=== PATIENT | male | born 1975 | race Caucasian/White ===

== ENCOUNTER 2022-11-12 01:05 | Day surgery (SDC) | payer OTHER, SELFPAY ==
[2022-11-02 13:13] VITALS: BMI 33.3
[2022-11-12 11:55] VITALS: BP 118/86; PULSE 111; RESP 20; TEMP 36.1; O2SAT 99
[2022-11-12] MEDS: LACTATED RINGERS 1,000 ML 150 ML IV CONT (12:06)
[2022-11-12 12:07] LABS: Glucose Point of Care 126 mg/dl (65-105)
--- NOTE | 2022-11-12 12:11 | PM.HPGS ---
History of Present Illness History of Present Illness Consent: Risks, benefits, and alternatives have been discussed and questions answered. Patient agrees to proceed with procedure. Chief complaint: change in bowel habits Narrative: William Domínguez is a 47 year old male here for first colonoscopy but since July with alternating constipation and diarrhea Review of Systems Constitutional: Constitutional: Denies headache(s) and Denies weakness Eyes: Eyes: Denies blurry vision ENT: Reports Normal hearing present, Denies headache(s) and Denies neck pain Cardiovascular: Cardiovascular: Denies chest pain and Denies dyspnea Respiratory: Respiratory: Denies dyspnea Gastrointestinal: Gastrointestinal: Reports no additional gastrointestinal complaints Genitourinary: Genitourinary: Denies dysuria Musculoskeletal: Musculoskeletal: Denies neck pain Integumentary/Breasts: Skin/Breast: Denies dry skin Neurologic: Reports Normal hearing present, Denies headache(s) and Denies weakness Psychiatric: Psychiatric: Denies anxiety Endocrine: Endocrine: Denies change in body appearance Hematologic/Lymphatic: Hematologic/Lymphatic: Denies easy bleeding Allergic/Immunologic: Allergic/Immunologic: Denies urticaria PMFSH Past Medical History Medical History (Updated 11/12/22 @ 12:12 by Erich Frankel MD) Alternating constipation and diarrhea Colon cancer screening Family History Family History (Updated 10/10/15 @ 23:19 by DOCTOR UNKNOWN) Mother Hypertension Family history of diabetes mellitus in first degree relative Social History Social History Smoking status: Never smoker Alcohol intake: current Drinks per week: 12 Alcohol use details: beer Substance use type: does not use Living arrangements: with family Spiritual care concerns: No Meds Home Medications and Allergies Home Medications Medication Instructions Recorded Confirmed Type dulaglutide 0.75 mg/0.5 mL 0.75 mg subcut WEEKLY 11/02/22 11/02/22 History subcutaneous pen injector (Trulicity) empagliflozin 12.5 mg-metformin 1 tablet PO DAILY 11/02/22 11/02/22 History 1,000 mg tablet (Synjardy) testosterone 1 pump topical DAILY 11/02/22 11/02/22 History Allergies Allergy/AdvReac Type Severity Reaction Status Date / Time No Known Allergies Allergy Verified 11/12/22 11:54 Vital Signs Vital Signs - 24 hr 11/12/22 11:55 Temperature 97 F L Pulse Rate 111 H Respiratory Rate 20 Blood Pressure 118/86 Pulse Oximetry 99 Oxygen Delivery Room Air Exam Const: General: comfortable and no acute distress HENMT: Face/Nose/Sinus: Normal nares present Eyes: General: appearance normal, both eyes and all related structures Neck: Neck: no JVD Resp: Auscultation: clear to auscultation bilaterally Cardio: Rate: regular rate Rhythm: regular rhythm GI: Inspection: non-distended GI Palp: Yes Soft to palpation Skin: General skin exam: normal color Neuro: General: gait normal Speech: normal speech Extrem: General: normal to inspection Psych: Mental Status: mental status grossly normal Assessment and Plan Assessment and plan (1) Colon cancer screening: Code(s): Z12.11 - Encounter for screening for malignant neoplasm of colon Status: Acute Assessment and Plan: colonoscopy (2) Alternating constipation and diarrhea: Code(s): R19.8 - Other specified symptoms and signs involving the digestive system and abdomen Status: Acute
--- NOTE | 2022-11-12 12:21 | WPDANESEPPF ---
Anes - Initial Pre Proc Eval Procedure: Operation Date: 11/12/22 13:00 Proposed Procedures p Colonoscopy - Erich Frankel MD Date/Time: 11/12/22 12:21 Surgeon: Erich Frankel MD Pre Op Diagnosis: change in bowel habits Patient Data Age: 47 Gender: M Height: 1.83 m Weight: 106.1 kg Last Vital Signs Temp 97 F L 11/12/22 11:55 Pulse 111 H 11/12/22 11:55 Resp 20 11/12/22 11:55 BP 118/86 11/12/22 11:55 Pulse Ox 99 11/12/22 11:55 O2 Del Method Room Air 11/12/22 11:55 Allergies Allergy/AdvReac Type Severity Reaction Status Date / Time No Known Allergies Allergy Verified 11/12/22 11:54 Home Medications Medication Instructions Recorded Confirmed Type dulaglutide 0.75 mg/0.5 mL 0.75 mg subcut WEEKLY 11/02/22 11/02/22 History subcutaneous pen injector (Trulicity) empagliflozin 12.5 mg-metformin 1 tablet PO DAILY 11/02/22 11/02/22 History 1,000 mg tablet (Synjardy) testosterone 1 pump topical DAILY 11/02/22 11/02/22 History Laboratory Tests 11/12/22 11:59 POC Capillary Glucose 126 H mg/dl (65-105) Patient hx anesthesia problems: none Family hx anesthesia problems: none Results Review: All pre-operative results and documents have been reviewed as part of the pre-operative evaluation. [facility] Past Medical History Medical History (Updated 11/12/22 @ 12:12 by Erich Frankel MD) Alternating constipation and diarrhea Colon cancer screening Family History Family History (Updated 10/10/15 @ 23:19 by DOCTOR UNKNOWN) Mother Hypertension Family history of diabetes mellitus in first degree relative Social History Social History Smoking status: Never smoker Alcohol intake: current Drinks per week: 12 Alcohol use details: beer Substance use type: does not use Living arrangements: with family Spiritual care concerns: No Anes - Eval Final PreProcedure Day of Procedure 11/12/22 12:21 Patient weight: obese Heart: regular rate and rhythm Lungs: clear to auscultation Airway: Mallampati scale class II Neurological: alert and oriented Last oral intake: >/= 8 hours ASA classification: III Emergent: no Anesthetic plan: proceed Anesthesia type and monitoring: general GIVS and standard monitoring Results Review: All pre-operative results and documents have been reviewed as part of the pre-operative evaluation. Informed Consent: The patient's anesthetic plan and its attendant risks and benefits were discussed with the patient/family/POA. Questions were solicited and answers provided to the satisfaction of the patient/family/POA.
[2022-11-12 12:38] VITALS: BP 117/91; PULSE 105; RESP 19; O2SAT 97
[2022-11-12 12:48] VITALS: BP 98/46; RESP 19; O2SAT 98
[2022-11-12 12:58] VITALS: BP 106/61; PULSE 97; RESP 18; O2SAT 98
== END 2022-11-12 12:59 | disposition home or self-care (01) ==
PROVIDERS: PCP Physician Assistant; Visit Provider Internal Medicine Gastroenterology
PROC: 0DJD8ZZ Inspection of Lower Intestinal Tract, Via Natural or Artificial Opening Endoscopic (ICD-10-PCS; CPT 45378; principal; 2022-11-12 13:00)
DX: Z12.11 Encounter for screening for malignant neoplasm of colon (principal); K64.8 Other hemorrhoids; R19.7 Diarrhea, unspecified; K59.00 Constipation, unspecified; Z79.84 Long term (current) use of oral hypoglycemic drugs; Z79.899 Other long term (current) drug therapy; E66.9 Obesity, unspecified; Z68.31 Body mass index [BMI] 31.0-31.9, adult
CPT/HCPCS: 45380; 82948; 88305; J2704; J7120

== ENCOUNTER 2022-11-30 10:18 | Outpatient (CLI) | payer OTHER, SELFPAY ==
--- NOTE | ~2022-11-30 | XR_ITS ---
EXAMINATION: XR abdomen/kub 1V INDICATION: Abdominal bloating TECHNIQUE: Supine views of the abdomen were obtained on 2 radiographs. COMPARISON: None FINDINGS: A moderate volume of colonic stool is present. There are mildly dilated loops of small kayla l in the midabdomen. Surgical clips in the right upper quadrant are likely from prior cholecystectomy . There is mild osteoarthritis of the hips. IMPRESSION: 1. Constipation. 2. Mildly dilated small bowel in the mid abdomen which could reflect ileus versus partial obstruction . Consider further evaluation with CT. Reviewed, dictated and finalized at location L. IMPRESSION: 1. Constipation. 2. Mildly dilated small bowel in the mid abdomen which could reflect ileus vers us partial obstruction. Consider further evaluation with CT.
[2022-11-30 11:41] LABS: Hematocrit 48.2 % (42.0-52.0); Hemoglobin 16.4 g/dL (14.0-18.0); Mean Corpuscular Hemoglobin 29.7 pg (26-34); Mean Corpuscular Volume 87.3 fl (80-100); Mean Platelet Volume 9.6 fl (7.4-10.4); Platelet Count Result 223 k/mm3 (150-375); Red Blood Count 5.52 M/mm3 (4.6-6.20); Red Cell Distribution Width 12.7 % (11.5-14.5); White Blood Count 6.7 K/mm3 (4.5-10.0)
[2022-11-30 11:50] LABS: Appearance Urine Clear (Clear); Bilirubin Urine Negative (Negative); Blood Urine Negative (Negative); Color Urine Yellow (Yellow); Glucose Urine UA 3+ mg/dL (Negative); Ketones Urine Negative (Negative); Leukocyte Esterase Ur Negative LEU/UL (Negative); Nitrate Urine Negative (Negative); Protein Urine Negative (Negative); Specific Grav Ur 1.025 (1.001-1.035); Urobilinogen Urine 0.2 mg/dL (<2.0); pH Urine 5.5 (5.0-9.0)
[2022-11-30 12:01] LABS: Alanine Aminotransferase 22 U/L (6-50); Albumin Level 4.4 g/dL (3.5-5.1); Alkaline Phosphatase 60 U/L (38-126); Anion Gap 7 mmol/L (8-16); Aspartate Amino Transferase 22 U/L (17-59); Bilirubin,Total 1.1 mg/dL (0.2-1.3); Blood Urea Nitrogen 12 mg/dL (9-20); Carbon Dioxide 29 mmol/L (22-30); Chloride 99 mmol/L (98-107); Estimated Glomerular Filt Rate > 60; Glucose 115 mg/dL (65-110); Potassium 4.2 mmol/L (3.4-5.0); Sodium 135 mmol/L (137-145)
[2022-11-30 12:17] LABS: Add Urine Microscopic? NO
[2022-12-06 15:50] LABS: Immunoglobulin A 197 mg/dL (47-310); TTG IGA AB <1.0 U/mL (<15.0)
== END 2022-11-30 10:19 | disposition home or self-care (01) ==
PROVIDERS: PCP Physician Assistant; Visit Provider Nurse Practitioner Family
DX: R11.2 Nausea with vomiting, unspecified (principal); R19.8 Other specified symptoms and signs involving the digestive system and abdomen; R14.2 Eructation; K59.00 Constipation, unspecified; R93.5 Abnormal findings on diagnostic imaging of other abdominal regions, including retroperitoneum
CPT/HCPCS: 36415; 74018; 80053; 81003; 82784; 84443; 85027; 86364

== ENCOUNTER 2022-12-08 13:09 | Outpatient (CLI) | payer OTHER, SELFPAY ==
--- NOTE | ~2022-12-08 | CT_ITS ---
EXAMINATION: CT abdomen pelvis w con INDICATION: Bloating and diarrhea, mildly dilated small bowel on KUB TECHNIQUE: Computed tomographic images of the abdomen and pelvis were obtained after the administrati on of 100 cc of Omnipaque 350 intravenous contrast. The dose-length product (DLP) was 963.20 mGy-cm. Automated exposure control and iterative reconstruction technique were employed. COMPARISON: 02/20/2015 FINDINGS: There are at least seven nodules of the visualized lung bases, the largest of which measure s 12 mm in the right lower lobe. The heart size is normal. Changes of cholecystectomy are noted. The liver, spleen, pancreas, and adrenal glands are normal. The kidneys are unremarkable. No pathological ly enlarged abdominal or pelvic lymph nodes are identified. No free intraperitoneal gas or evidence o f bowel obstruction. There is some form stool within nondistended loops of small bowel, consistent wi th slow transit. There is an umbilical hernia containing fat. Severe lumbar spondylosis is noted at L 5-S1. The appendix is normal. IMPRESSION: 1. Multiple nodules of the visualized lung bases. Dedicated CT of the chest is recommended. 2. No definite correlate for the patient's symptoms. Reviewed, dictated and finalized at location F.
== END 2022-12-08 13:10 | disposition home or self-care (01) ==
PROVIDERS: PCP Physician Assistant; Visit Provider Nurse Practitioner Family
DX: R93.5 Abnormal findings on diagnostic imaging of other abdominal regions, including retroperitoneum (principal); R91.8 Other nonspecific abnormal finding of lung field
CPT/HCPCS: 74177; Q9967

== ENCOUNTER 2023-01-03 07:00 | Outpatient (NON) | payer OTHER, SELFPAY | END 2023-01-03 07:01 | disposition home or self-care (01) | PROVIDERS: PCP Physician Assistant; Visit Provider Internal Medicine Gastroenterology | DX: R14.2 Eructation (principal) | CPT/HCPCS: 88305 ==

== ENCOUNTER 2023-01-03 09:47 | Day surgery (SDC) | payer OTHER, SELFPAY ==
[2022-12-17 07:22] VITALS: BMI 33.0
[2023-01-03 11:38] VITALS: BP 131/89; PULSE 72; RESP 16; TEMP 36.2; O2SAT 100; BMI 33.1
--- NOTE | 2023-01-03 11:43 | WPDANESEPPF ---
Anes - Initial Pre Proc Eval Procedure: Operation Date: 01/03/23 12:30 Proposed Procedures p Esophagogastroduodenoscopy - Erich Frankel MD Date/Time: 01/03/23 11:43 Surgeon: Erich Frankel MD Pre Op Diagnosis: Nausea, Vomitting, Eructation Patient Data Age: 47 Gender: M Height: 1.83 m Weight: 110.85 kg Last Vital Signs Temp 36.2 C L 01/03/23 11:38 Pulse 72 01/03/23 11:38 Resp 16 01/03/23 11:38 BP 131/89 01/03/23 11:38 Pulse Ox 100 01/03/23 11:38 O2 Del Method Room Air 01/03/23 11:38 Allergies Allergy/AdvReac Type Severity Reaction Status Date / Time No Known Allergies Allergy Verified 01/03/23 11:37 Home Medications Medication Instructions Recorded Confirmed Type dulaglutide 0.75 mg/0.5 mL 0.75 mg subcut WEEKLY 11/02/22 01/03/23 History subcutaneous pen injector (Trulicity) empagliflozin 12.5 mg-metformin 1 tablet PO DAILY 11/02/22 01/03/23 History 1,000 mg tablet (Synjardy) testosterone 1 pump topical DAILY 11/02/22 01/03/23 History famotidine 20 mg tablet (Pepcid) 20 mg PO DAILY 1 month #30 tabs 11/30/22 01/03/23 Rx Patient hx anesthesia problems: none Family hx anesthesia problems: none Results Review: All pre-operative results and documents have been reviewed as part of the pre-operative evaluation. [facility] [place] Past Medical History Medical History Abnormal x-ray of abdomen Alternating constipation and diarrhea Belching Colon cancer screening Nausea and vomiting Family History Family History Mother Hypertension Family history of diabetes mellitus in first degree relative Social History Social History Smoking status: Former smoker Alcohol intake: current Drinks per week: 24 Alcohol use details: beer Substance use type: does not use Living arrangements: with family Spiritual care concerns: No Anes - Eval Final PreProcedure Day of Procedure 01/03/23 11:43 Patient weight: obese Heart: regular rate and rhythm Lungs: clear to auscultation Airway: Mallampati scale class II Neurological: alert and oriented Last oral intake: >/= 8 hours ASA classification: III Emergent: no Anesthetic plan: proceed Anesthesia type and monitoring: general GIVS and standard monitoring Results Review: All pre-operative results and documents have been reviewed as part of the pre-operative evaluation. Informed Consent: The patient's anesthetic plan and its attendant risks and benefits were discussed with the patient/family/POA. Questions were solicited and answers provided to the satisfaction of the patient/family/POA.
[2023-01-03 11:58] LABS: Glucose Point of Care 144 mg/dl (65-105)
[2023-01-03] MEDS: LACTATED RINGERS 1,000 ML 150 ML IV CONT (12:00)
--- NOTE | 2023-01-03 12:06 | PM.HPGS ---
History of Present Illness History of Present Illness Consent: Risks, benefits, and alternatives have been discussed and questions answered. Patient agrees to proceed with procedure. Chief complaint: Nausea, Vomitting, Eructation Narrative: William Domínguez is a 47 year old male with belching which has improved lately, also tenesmus but normal colonoscopy and CT scan, serology for celiac negative. Review of Systems Constitutional: Constitutional: Denies headache(s) and Denies weakness Eyes: Eyes: Denies blurry vision ENT: Reports Normal hearing present, Denies headache(s) and Denies neck pain Cardiovascular: Cardiovascular: Denies chest pain and Denies dyspnea Respiratory: Respiratory: Denies dyspnea Gastrointestinal: Gastrointestinal: Reports no additional gastrointestinal complaints Genitourinary: Genitourinary: Denies dysuria Musculoskeletal: Musculoskeletal: Denies neck pain Integumentary/Breasts: Skin/Breast: Denies dry skin Neurologic: Reports Normal hearing present, Denies headache(s) and Denies weakness Psychiatric: Psychiatric: Denies anxiety Endocrine: Endocrine: Denies change in body appearance Hematologic/Lymphatic: Hematologic/Lymphatic: Denies easy bleeding Allergic/Immunologic: Allergic/Immunologic: Denies urticaria PMFSH Past Medical History Medical History Abnormal x-ray of abdomen Alternating constipation and diarrhea Belching Colon cancer screening Nausea and vomiting Family History Family History Mother Hypertension Family history of diabetes mellitus in first degree relative Social History Social History Smoking status: Former smoker Alcohol intake: current Drinks per week: 24 Alcohol use details: beer Substance use type: does not use Living arrangements: with family Spiritual care concerns: No Meds Home Medications and Allergies Home Medications Medication Instructions Recorded Confirmed Type dulaglutide 0.75 mg/0.5 mL 0.75 mg subcut WEEKLY 11/02/22 01/03/23 History subcutaneous pen injector (Trulicity) empagliflozin 12.5 mg-metformin 1 tablet PO DAILY 11/02/22 01/03/23 History 1,000 mg tablet (Synjardy) testosterone 1 pump topical DAILY 11/02/22 01/03/23 History famotidine 20 mg tablet (Pepcid) 20 mg PO DAILY 1 month #30 tabs 11/30/22 01/03/23 Rx Allergies Allergy/AdvReac Type Severity Reaction Status Date / Time No Known Allergies Allergy Verified 01/03/23 11:37 Vital Signs Vital Signs - 24 hr 01/03/23 11:38 Temperature 97.1 F L Pulse Rate 72 Respiratory Rate 16 Blood Pressure 131/89 Pulse Oximetry 100 Oxygen Delivery Room Air Exam Const: General: comfortable and no acute distress HENMT: Face/Nose/Sinus: Normal nares present Eyes: General: appearance normal, both eyes and all related structures Neck: Neck: no JVD Resp: Auscultation: clear to auscultation bilaterally Cardio: Rate: regular rate Rhythm: regular rhythm GI: Inspection: non-distended GI Palp: Yes Soft to palpation Skin: General skin exam: normal color Neuro: General: gait normal Speech: normal speech Extrem: General: normal to inspection Psych: Mental Status: mental status grossly normal Assessment and Plan Assessment and plan (1) Belching: Code(s): R14.2 - Eructation Status: Acute Assessment and Plan: egd with bx
[2023-01-03 12:17] VITALS: BP 108/78; PULSE 84; RESP 16; O2SAT 99
--- NOTE | 2023-01-03 12:22 | WPDANESPN ---
Anes - Prog Note Post-Op Date/Time: 01/03/23 12:22 Cardiovascular status: normal Respiratory status: normal Airway patency: baseline Mental status: baseline Post-Op hydration status: normal Vital Signs: Last Vital Signs Temp 36.2 C L 01/03/23 11:38 Pulse 72 01/03/23 11:38 Resp 16 01/03/23 11:38 BP 131/89 01/03/23 11:38 Pulse Ox 100 01/03/23 11:38 O2 Del Method Room Air 01/03/23 11:38 Pain Score (VAS): 0/10 I/O: Intake & Output 01/02/23 01/03/23 01/03/23 23:59 07:59 15:59 Intake Total 400 Balance 400 01/03/23 11:55 POC Capillary Glucose 144 H Patient Feedback: Patient satisfied with anesthetic care.
[2023-01-03 12:27] VITALS: BP 103/74; PULSE 81; RESP 16; O2SAT 99
[2023-01-03 12:42] VITALS: BP 106/67; PULSE 67; RESP 16; O2SAT 100
== END 2023-01-03 12:47 | disposition home or self-care (01) ==
PROVIDERS: PCP Physician Assistant; Visit Provider Internal Medicine Gastroenterology
PROC: 0DJ08ZZ Inspection of Upper Intestinal Tract, Via Natural or Artificial Opening Endoscopic (ICD-10-PCS; CPT 43235; principal; 2023-01-03 12:30)
DX: Z71.1 Person with feared health complaint in whom no diagnosis is made (principal)
CPT/HCPCS: 43239

== ENCOUNTER 2023-01-24 08:33 | Outpatient (CLI) | payer OTHER, SELFPAY ==
--- NOTE | ~2023-01-24 | XR_ITS ---
EXAMINATION: XR small bowel follow through DATE: 01/24/2023 11:41 INDICATION: Diarrhea. TECHNIQUE: Oral contrast was administered, and a time course of radiographs of the abdomen was obtain ed. Fluoroscopy of the small bowel was performed. Fluoroscopy exposure time was 0.1 minutes. The tota l number of images was 13. COMPARISON: CT abdomen and pelvis 12/08/2022 FINDINGS: There are no dilated loops of bowel. There is no abnormal mass or stricture. The terminal ileum is no rmal. Transit time from the stomach to proximal colon was approximately 2.5 hours. IMPRESSION: 1. Normal small bowel series. Reviewed, dictated and finalized at location A. PHONE MAINTAINER
== END 2023-01-24 08:34 | disposition home or self-care (01) ==
PROVIDERS: PCP Physician Assistant; Visit Provider Nurse Practitioner Family
DX: R19.8 Other specified symptoms and signs involving the digestive system and abdomen (principal); R93.5 Abnormal findings on diagnostic imaging of other abdominal regions, including retroperitoneum
CPT/HCPCS: 74250

== ENCOUNTER 2023-12-19 12:01 | Outpatient (CLI) | payer OTHER, SELFPAY ==
--- NOTE | ~2023-12-19 | XR_ITS ---
Lumbosacral Spine: AP and lateral views Clinical History: Pain Findings: The normal lordotic curve is maintained. The vertebral bodies and posterior elements are i ntact. There is moderate degenerative disc narrowing at L4-L5, with advanced degenerative disc narrow ing at L5-S1. There is advanced facet arthropathy from L4 through S1. There is mild facet arthropathy in the upper lumbar spine.. The sacroiliac joints are normally outlined. Impression: Moderate degenerative spondylosis, as above. Reviewed, dictated and finalized at location M. Impression: Moderate degenerative spondylosis, as above.
== END 2023-12-19 12:02 | disposition home or self-care (01) ==
PROVIDERS: PCP Physician Assistant; Visit Provider Physician Assistant
DX: M47.817 Spondylosis without myelopathy or radiculopathy, lumbosacral region (principal); M47.816 Spondylosis without myelopathy or radiculopathy, lumbar region
CPT/HCPCS: 72100